=== PATIENT | male | born 2000 | race Asian ===

== ENCOUNTER 2023-12-24 14:44 | Emergency (ER) | payer OTHER, SELFPAY ==
[2023-12-24 14:50] VITALS: BP 139/96
--- NOTE | 2023-12-24 15:11 | ED.GENMED ---
History of Present Illness
General
Chief Complaint: Chest Pain
Time Seen by Provider: 12/24/23 15:09
Travel History
Have you had any contact with someone who has COVID-19?: No
Do you have any symptoms of coronavirus? Fever > 100 degrees, chills, cough, shortness of breath, sore throat, loss of taste or smell, muscle aches, or headache?: No
History of Present Illness
History of Present Illness:
23 yo male w/ no PMH presents to the Emergency Department for evaluation of intermittent sharp chest pain x 2 weeks. Random in nature, no obvious provoking or palliating factors. States it typically begins when he is at rest, no exertional symptoms.
No pain currently. Pain is typically brief in nature, nonradiating. No pleuritic nature or shortness of breath associated with this pain. Denies any fever, chills, sweats, weight loss, or coughing. Does smoke marijuana products but denies use
of tobacco products. Denies any leg swelling or calf pain
Past History
Past History
ED Past Medical History: None
ED Past Surgical History: None
Social History
Tobacco: Non-smoker
Alcohol: None
Drug: None
Review of Systems
Review of Systems
Allergies reviewed?: Yes
All Other Systems: ROS reviewed and negative except as documented in HPI and ROS
Phy Exam
Physical Exam
Physical Exam:
GEN: Well appearing, NAD, WDWN
HEENT: Oral mucosa moist, no scleral icterus
Cardiac: Regular rate and rhythm, no murmurs or rubs
Lung: No respiratory distress, no tachypnea, lungs clear to auscultation bilaterally
MSK: No gross deformity or injuries
Skin: Good color, no pallor or jaundice, no rashes
Neuro: AO x3, moves all extremities freely
Psych: Calm, cooperative
Scores
Heart Score for Chest Pain Patients
STEMI patient?: No
History: Slightly or Non-Suspicious
ECG: Normal
Age: </= 45 years
Risk Factors: No Risk Factors
Troponin: </= Normal Limit
Heart Score for Chest Pain Patients: 0
Heart Score Risk: 2.5% MACE over next 6 weeks
Course
Orders/Labs/Results
Orders:
Orders
12/24/23 14:52
Electrocardiogram (*1) Urgent
Reason for Study: Chest Pain
Cardiac Monitoring- Treatment ONCE
EKG- Treatment ONCE
12/24/23 15:17
CR Chest - 2 Views Urgent
Comment:
Reason For Exam: Chest Pain
12/24/23 14:52
12/24/23 14:52
Vital Signs
Initial and Last Documented VS:
Initial Vital Signs
Temp Pulse Resp BP Pulse Ox
98.3 F 99 16 139/96 98
12/24/23 14:50 12/24/23 14:50 12/24/23 14:50 12/24/23 14:50 12/24/23 14:50
Last Documented Vital Signs
Temp Pulse Resp BP Pulse Ox
98.3 F 99 16 139/96 98
12/24/23 14:50 12/24/23 14:50 12/24/23 14:50 12/24/23 14:50 12/24/23 14:50
MDM/Problems Addressed
MDM/Problems Addressed:
EKG and chest x-ray are unremarkable. His pain pattern does not fit with acute coronary syndrome particular given the chronicity of it. Vital signs are unremarkable, meets PERC criteria. Likely musculoskeletal, recommend NSAIDs for supportive care
Comment
Comment:
EKG independently interpreted by me shows normal sinus rhythm at a rate of [address] changes concerning for ischemia, QTc of 423
*Critical Care Note
Total Time (30-74mins, 75-104mins- exclusive of procedures): Not Applicable
ED Attending Note
-
Portions of this chart may have been created with voice recognition software.� Occasional wrong word or��sound alike� substitutions may have occurred due to the inherent limitations of voice recognition software.
Discharge Plan
Departure
Patient Disposition: Home (Routine Discharge)
Date of Disposition: 12/24/23
Time of Disposition: 15:56
Patient with high blood pressure during this ER visit?: No
Discharge Problem:
Atypical chest pain
Instructions: Chest Pain That Is Not Caused by the Heart (DC)
Prescriptions:
No Action
ibuprofen 600 mg tablet
600 mg PO Q6H PRN (Reason: pain) Qty: 20 0RF
cyclobenzaprine 10 mg tablet
10 mg PO TID PRN (Reason: muscle spasm) Qty: 12 0RF
Referrals:
NONE,* [Family Provider] -
Activity Restrictions/Additional Instructions:
Your EKG and chest x ray were normal
This pain is not likely caused by your heart or lungs
Please try taking 600mg ibuprofen three times a day for 1 week to see if this diminishes pain
Follow up with your primary care physician
Interventions
Interventions:
*Risk Screen - Suicide Last Done: 12/24/23 14:50
*General Assessment Last Done: 12/24/23 14:50
*Neglect/Abuse Screening Last Done: 12/24/23 14:50
*Nursing Disposition Last Done: 12/24/23 16:07
ED- Cardiac Assessment Last Done: 12/24/23 15:14
Discharge Date and Time
Discharge Date/Time: 12/24/23 16:07
== END 2023-12-24 16:07 | disposition home or self-care (01) ==
LOC: EMR 14:44
PROVIDERS: EMERGENCY PHYSICIAN Emergency Medicine
DX: R07.89 Other chest pain (principal)
CPT/HCPCS: 99284; 71046; 93005